=== PATIENT | female | born 2000 | race American Indian/Alaskan Native ===

== ENCOUNTER 2020-06-18 11:08 | Emergency (ER) | payer MEDICAID ==
--- NOTE | 2020-06-18 11:35 | Treadmill Report ---
STRESS EKG The patient is a 19-year-old female who was scheduled for a stress EKG for evaluation of chest pain. Baseline EKG showed sinus rhythm at a rate of 79 beats per minute, within normal limits. The patient exercised only for 2 minutes and 45 seconds, test has to be stopped because of back pain. She could not exercise any more. The patient attained a heart rate of 117 beats per minute, which is a 58% of predicted maximal heart rate. FINAL IMPRESSION: The patient could not perform treadmill because of back pain. It has to be stopped at 2 minutes and 45 seconds and this is nondiagnostic test because of limited heart rate obtained. No significant EKG changes at the heart rate obtained. May consider pharmacologic MPI if indicated at a later date. Also to be noted,on way to go to [employer],she developed significant chest pain,for which she was sent to ER for further evaluation. JOB# [id number] NEL/MERLINE TORIBIO
--- NOTE | 2020-06-18 11:47 | Emergency Department Report ---
ED General Adult HPI - General Chief complaint: Chest Pain Stated complaint: CHEST PAIN DURING STRESS TEST Time Seen by Provider: 06/18/20 11:38 Source: patient Mode of arrival: Ambulatory Limitations: No Limitations - History of Present Illness Initial comments: Patient is a 19-year-old female with chronic chest pain who presents to the emergency department for evaluation of exacerbation of chronic chest pain noted while leaving cardiology office earlier today. Patient was evaluated via stress test at [facility] [place] in [place] and following test began having similar character sharp central chest pain as she has for several years. Patient denies dyspnea, denies cough, denies fever, denies calf pain or swelling. Severity scale (0 -10): 8 - Related Data Allergies Allergy/AdvReac Type Severity Reaction Status Date / Time No Known Allergies Allergy Unverified 06/18/20 11:17 ED Review of Systems ROS: Stated complaint: CHEST PAIN DURING STRESS TEST Other details as noted in HPI Comment: All other systems reviewed and negative ED Past Medical Hx - Past Medical History Previous Medical History?: Yes Additional medical history: Chronic chest pain ED Physical Exam - General Limitations: No Limitations General appearance: alert, in no apparent distress - Head Head exam: Present: atraumatic, normocephalic - Eye Eye exam: Present: normal appearance - ENT ENT exam: Present: mucous membranes moist - Neck Neck exam: Present: normal inspection - Respiratory Respiratory exam: Present: normal lung sounds bilaterally. Absent: respiratory distress - Cardiovascular Cardiovascular Exam: Present: regular rate, normal rhythm. Absent: systolic murmur, diastolic murmur, rubs, gallop - GI/Abdominal GI/Abdominal exam: Present: soft, normal bowel sounds - Extremities Exam Extremities exam: Present: normal inspection - Back Exam Back exam: Present: normal inspection - Neurological Exam Neurological exam: Present: alert, oriented X3 - Psychiatric Psychiatric exam: Present: normal affect, normal mood - Skin Skin exam: Present: warm, dry, intact, normal color. Absent: rash ED Course Vital Signs 06/18/20 06/18/20 06/18/20 11:16 11:45 12:00 Temperature 98.1 F Pulse Rate 92 H 79 72 Respiratory 16 19 18 Rate Blood Pressure 143/92 141/92 Blood Pressure 128/66 [right] O2 Sat by Pulse 98 100 99 Oximetry - Reevaluation(s) Reevaluation #1: 06/18/20 12:05 Dr. Allen contacted, case discussed, states he does not suspect patient has cardiovascular disease, states patient had normal stress test until she discontinued secondary to back pain. States patient wanted COVID-19 test and cardiology office, was informed that he did not do them and came to the emergency department. ED Medical Decision Making - EKG Data -: EKG Interpreted by Me (Sinus rhythm at 79, no ST-T changes, normal QRS) - Medical Decision Making PERC 0/8 Critical care attestation.: If time is entered above; I have spent that time in minutes in the direct care of this critically ill patient, excluding procedure time. ED Disposition Clinical Impression: Chest pain Disposition: DC-01 TO HOME OR SELFCARE Is pt being admited?: No Condition: Stable Instructions: Nonspecific Chest Pain, Adult, Chest Pain (ED) Additional Instructions: Follow-up with PMD and/or cardiology for re-evaluation. Return to the ER for worsening symptoms.
[2020-06-18 12:04] VITALS: BP 141/92
== END 2020-06-18 12:18 | disposition home or self-care (01) ==
LOC: ED 11:08
DX: R07.9 Chest pain, unspecified (principal); Z79.899 Other long term (current) drug therapy
CPT/HCPCS: 93005; 93017; 99281; 99282

== ENCOUNTER 2020-09-19 17:19 | Emergency (ER) | payer MEDICAID ==
[2020-09-19 17:28] VITALS: BP 117/88
[2020-09-19] MEDS ORDERED: ONDANSETRON 4 MG ODT TAB PO ONE (20:02)
[2020-09-19] MEDS ORDERED: ACETAMINOPHEN 500 MG TAB PO ONE (20:02)
[2020-09-19 20:21] LABS: Basophils # (Auto) 0.1 K/mm3 (0.0-0.1); Basophils % (Auto) 0.8 % (0.0-1.8); Eosinophils # (Auto) 0.1 K/mm3 (0.0-0.4); Eosinophils % (Auto) 0.6 % (0.0-4.3); Hematocrit 36.6 % (30.3-42.9); Lymphocytes # (Auto) 2.7 K/mm3 (1.2-5.4); Lymphocytes % (Auto) 28.2 % (13.4-35.0); Mean Corpuscular HGB Conc 33 % (30-34); Mean Corpuscular Volume 92 fl (79-97); Monocytes # (Auto) 0.6 K/mm3 (0.0-0.8); Monocytes % (Auto) 6.2 % (0.0-7.3); Platelet Count 377 K/mm3 (140-440); Red Blood Count 3.98 M/mm3 (3.65-5.03); Red Cell Distribution Width 14.4 % (13.2-15.2)
[2020-09-19 20:50] LABS: Alanine Aminotransferase 32 units/L (7-56); Albumin 4.4 g/dL (3.9-5); Blood Urea Nitrogen 13 mg/dL (7-17); Calcium 9.5 mg/dL (8.4-10.2); Hemolysis Index 8
--- NOTE | 2020-09-19 20:51 | XRay Report ---
CHEST 1 VIEW 09/19/2020 7:44 PM INDICATION / CLINICAL INFORMATION: Cough, chest pain. COMPARISON: None available. FINDINGS: SUPPORT DEVICES: None. HEART / MEDIASTINUM: No significant abnormality. LUNGS / PLEURA: No significant pulmonary or pleural abnormality. No pneumothorax. ADDITIONAL FINDINGS: No significant additional findings. IMPRESSION: No acute abnormality. Signer Name: Frederick Sadler MD Signed: 09/19/2020 8:46 PM Workstation Name: [id number]
[2020-09-19 20:57] LABS: BUN/Creatinine Ratio 19
[2020-09-19] MEDS ORDERED: BUTALB/ACETAMINOPHEN/CAFFEINE TAB PO ONE (21:51)
[2020-09-19 22:21] LABS: Bacteria,Urine 1+ /HPF (Negative); Bilirubin,Urine NEG (Negative); Blood,Urine SM (Negative); Color,Urine Yellow (Yellow); Mucus,Urine 2+ /HPF; Protein,Urine <15 mg/dL mg/dL (Negative)
--- NOTE | 2020-09-20 00:19 | Emergency Department Report ---
ED General Adult HPI - General Chief complaint: Upper Respiratory Infection Stated complaint: CHEST PAINS Source: patient Mode of arrival: Ambulatory Limitations: No Limitations - History of Present Illness Initial comments: Patient is a nulliparous 20-year-old -[place] female with no past medical history presents to the ED with complaint of acute onset persistent diffuse body aches and pains, sore throat, dysphagia, nausea and vomiting, persistent dry cough with pleuritic chest pain for the last 2 days. Patient states that her symptoms got worse in the last 12 hours such that despite taking [id number] medications his symptoms have worsened. Patient denies dizziness, syncope, abdominal pain, dysuria, urine frequency and urgency, palpitation, headache, vaginal bleeding, vaginal discharge or diarrhea, MD Complaint: Generalized body aches; headache; sore throat; chest pain, cough, nausea -: Sudden, days(s) (2) Location: head, mouth, chest, back Radiation: non-radiation Severity scale (0 -10): 6 Quality: stabbing, sharp Consistency: constant Improves with: none Worsens with: none Associated Symptoms: denies other symptoms, chest pain, cough, headaches, loss of appetite, malaise, nausea/vomiting. denies: confusion, diaphoresis, fever/chills, rash, seizure, shortness of breath, syncope, weakness, other Treatments Prior to Arrival: none - Related Data Previous Rx's Medication Instructions Recorded Last Taken Type Azithromycin [Zithromax Z-LARON] 250 mg PO DAILY #6 tablet 09/20/20 Unknown Rx Butalb/Acetamin/Caff 50-325-40 1 - 2 tab PO Q6HR PRN #15 tab 09/20/20 Unknown Rx [Fioricet 50-325-40] Ibuprofen [Motrin] 600 mg PO Q8H PRN #30 tablet 09/20/20 Unknown Rx Ondansetron [Zofran Odt] 4 mg PO Q8HR PRN #15 tab.rapdis 09/20/20 Unknown Rx Allergies Allergy/AdvReac Type Severity Reaction Status Date / Time No Known Allergies Allergy Verified 09/19/20 17:27 ED Review of Systems ROS: Stated complaint: CHEST PAINS Other details as noted in HPI Constitutional: chills, fever, malaise, weakness Eyes: denies: eye pain, eye discharge, vision change ENT: throat pain, congestion Respiratory: cough. denies: wheezing Cardiovascular: chest pain (Pleuritic chest pain). denies: palpitations Endocrine: no symptoms reported Gastrointestinal: nausea. denies: abdominal pain, vomiting, diarrhea Genitourinary: denies: urgency, dysuria, discharge Musculoskeletal: arthralgia, myalgia. denies: back pain, joint swelling Skin: denies: rash, lesions Neurological: denies: headache, weakness, paresthesias Psychiatric: denies: anxiety, depression Hematological/Lymphatic: denies: easy bleeding, easy bruising ED Past Medical Hx - Past Medical History Previous Medical History?: No Additional medical history: Chronic chest pain - Surgical History Additional Surgical History: TONSILS - Social History Smoking Status: Never Smoker Substance Use Type: Alcohol - Medications Home Medications: Home Medications Medication Instructions Recorded Confirmed Last Taken Type Azithromycin [Zithromax Z-LARON] 250 mg PO DAILY #6 tablet 09/20/20 Unknown Rx Butalb/Acetamin/Caff 50-325-40 1 - 2 tab PO Q6HR PRN #15 tab 09/20/20 Unknown Rx [Fioricet 50-325-40] Ibuprofen [Motrin] 600 mg PO Q8H PRN #30 tablet 09/20/20 Unknown Rx Ondansetron [Zofran Odt] 4 mg PO Q8HR PRN #15 tab.rapdis 09/20/20 Unknown Rx ED Physical Exam - General Limitations: No Limitations General appearance: alert, in no apparent distress - Head Head exam: Present: atraumatic, normocephalic, normal inspection - Eye Eye exam: Present: normal appearance, PERRL, EOMI Pupils: Present: normal accommodation - ENT ENT exam: Present: mucous membranes moist, TM's normal bilaterally, normal external ear exam, other (Mildly erythematous oropharynx and tonsils; no perit onsillar abscess and uvula is midline) - Neck Neck exam: Present: normal inspection, full ROM - Respiratory Respiratory exam: Present: normal lung sounds bilaterally. Absent: respiratory distress, wheezes, rales, rhonchi, chest wall tenderness, accessory muscle use, decreased breath sounds, prolonged expiratory - Cardiovascular Cardiovascular Exam: Present: regular rate, normal rhythm, normal heart sounds. Absent: systolic murmur, diastolic murmur, rubs, gallop - GI/Abdominal GI/Abdominal exam: Present: soft, normal bowel sounds. Absent: tenderness, guarding, rebound, hyperactive bowel sounds, hypoactive bowel sounds - Extremities Exam Extremities exam: Present: normal inspection, full ROM, normal capillary refill - Back Exam Back exam: Present: normal inspection, full ROM. Absent: tenderness, CVA tenderness (R), CVA tenderness (L), muscle spasm, paraspinal tenderness, vertebral tenderness - Neurological Exam Neurological exam: Present: alert, oriented X3, CN II-XII intact, normal gait, reflexes normal - Psychiatric Psychiatric exam: Present: normal affect, normal mood - Skin Skin exam: Present: warm, dry, intact, normal color. Absent: rash ED Course Vital Signs 09/19/20 09/20/20 17:27 00:25 Temperature 98.5 F Pulse Rate 96 H 87 Respiratory 20 17 Rate Blood Pressure 117/88 O2 Sat by Pulse 99 97 Oximetry ED Medical Decision Making - Lab Data Result diagrams: 09/19/20 20:09 09/19/20 20:09 - Radiology Data [facility] [address] [place] [address] XRay Report Signed Patient: DAVE VELASQUEZ MR#: [id number] : 2000 Acct:[id number] Age/Sex: 20 / F ADM Date: 09/19/20 Loc: ED Attending Dr: Ordering Physician: DANAE RASHID Date of Service: 09/19/20 Procedure(s): XR chest 1V ap Accession Number(s): [id number] cc: DANAE RASHID Fluoro Time In Minutes: CHEST 1 VIEW 09/19/2020 7:44 PM INDICATION / CLINICAL INFORMATION: Cough, chest pain. COMPARISON: None available. FINDINGS: SUPPORT DEVICES: None. HEART / MEDIASTINUM: No significant abnormality. LUNGS / PLEURA: No significant pulmonary or pleural abnormality. No pneumothorax. ADDITIONAL FINDINGS: No significant additional findings. IMPRESSION: No acute abnormality. Signer Name: Frederick Sadler MD Signed: 09/19/2020 8:46 PM Workstation Name: [id number] Transcribed By: ES Dictated By: Frederick Sadler MD Electronically Authenticated By: Frederick Sadler MD Signed Date/Time: 09/19/202045 DD/ 45 TD/TT: Print Cancel - Medical Decision Making This is a nulliparous 20-year-old -[place] female with no past medical history presents to the ED with complaint of acute onset persistent diffuse body aches and pains, sore throat, dysphagia, nausea and vomiting, persistent dry cough with pleuritic chest pain for the last 2 days. Patient states that her symptoms got worse in the last 12 hours such that despite taking cths-[id number] medications his symptoms have worsened. In the ED, patient is alert and oriented x3 and is not in any distress. Chest x-ray shows no acute cardiopulmonary abnormalities or pneumonitis. Lab test results were reviewed and are all nonactionable. Patient was treated for pain in the ED and on reevaluation, patient's pain is well controlled medication. Therefore based on the history and physical exam findings, the patient will discharge home on medications and advised to follow-up with her primary care physician in 5 to 7 days for reevaluation. Patient was advised return to the ED immediately if symptoms get worse. - Differential Diagnosis Sinusitis; Strep pharyngitis; pneumonia; URI Critical care attestation.: If time is entered above; I have spent that time in minutes in the direct care of this critically ill patient, excluding procedure time. ED Disposition Clinical Impression: Sinus headache, Acute non-recurrent frontal sinusitis, Acute upper respiratory infection, Nausea and vomiting in adult Acute pharyngitis Qualifiers: Pharyngitis/tonsillitis etiology: other specified organisms Qualified Code(s): J02.8 - Acute pharyngitis due to other specified organisms Disposition: DC-01 TO HOME OR SELFCARE Is pt being admited?: No Does the pt Need Aspirin: No Condition: Stable Instructions: Sinusitis, Adult, [id number], Nausea and Vomiting, Adult, Uvod-ea-Jmtg, Upper Respiratory Infection, Adult, Rnfg-bd-Jkkh, Pharyngitis, Fxgq-bu-Dmmp Additional Instructions: All lab test results are nonactionable. Chest x-ray showed no acute cardiopulmonary abnormalities or pneumonitis. Your symptoms are likely due to nonspecific pharyngitis which could be bacterial or viral. Your headache is due to frontal sinusitis possibly from infection. Therefore take medication with food, drink plenty of fluids and follow-up with your primary care physician in 5 to 7 days for reevaluation. Return to the ED immediately if symptoms get worse. Prescriptions: Butalb/Acetamin/Caff 50-325-40 [Fioricet 50-325-40] 1 - 2 tab PO Q6HR PRN #15 tab PRN Reason: Headache Ibuprofen [Motrin] 600 mg PO Q8H PRN #30 tablet PRN Reason: Pain Azithromycin [Zithromax Z-LARON] 250 mg PO DAILY #6 tablet Ondansetron [Zofran Odt] 4 mg PO Q8HR PRN #15 tab.rapdis PRN Reason: Nausea Referrals: [facility] [Provider Group] - 7-10 days Time of Disposition: 00:11 Print Language: NEPALI
== END 2020-09-20 00:25 | disposition home or self-care (01) ==
LOC: ED 17:19
DX: J01.10 Acute frontal sinusitis, unspecified (principal); J02.9 Acute pharyngitis, unspecified; R51.9 Headache, unspecified; R11.2 Nausea with vomiting, unspecified; Z98.890 Other specified postprocedural states; Z79.1 Long term (current) use of non-steroidal anti-inflammatories (NSAID); Z79.2 Long term (current) use of antibiotics; Z79.899 Other long term (current) drug therapy
CPT/HCPCS: 36415; 71045; 80053; 81001; 84703; 85025; Q0162